=== PATIENT | female | born 1965 | race Caucasian/White ===

== ENCOUNTER 2016-07-24 13:52 | Emergency (ER) | payer MEDICAID ==
[~2016-07-24] VITALS: Ht 152.4 cm; Wt 116.0 kg
[~2016-07-24 13:52] MED LIST: ACET-3161; ARIP20TA7; ASPI-229; ATOR20TA; BENA10TA; CELE200C; CITA20TA19; DICL75TA5; ENAL10TA71; GABA-533; HYDR-1348; IBUP-779; INSU1INS; LEVO25TA7; OMEP20CA4; PIOG1TAB7; PREG75CA; RANI150T7; SIMV40TA2; [UNRECOGNIZED DRUG - CODE]
[2016-07-24] MEDS ORDERED: MORPHINE SULFATE 10 MG/ML CPJ IM ONE ×2 (15:00→19:30)
[2016-07-24] MEDS ORDERED: ONDANSETRON 4MG ODT PO ONE (15:00)
[2016-07-24 15:56] LABS: BASOPHILS % 0.8 % (0.0-2.0); EOSINOPHILS % 1.3 % (0.0-5.0); HEMATOCRIT. 37.9 % (36.0-48.0); HEMOGLOBIN. 12.4 g/dL (12.0-16.0); MEAN CORPUSCULAR HEMOGLOBIN 27.7 pg (28.0-32.0); MEAN CORPUSCULAR HGB CONC 32.8 g/dL (31.0-37.0); MEAN CORPUSCULAR VOLUME 84.5 fL (81.0-99.0); MEAN PLATELET VOLUME 7.6 fl (7.4-10.4); MONOCYTES % 8.7 % (2.0-8.0); NEUTROPHILS % 67.2 % (40.0-76.0); PLATELET 398 x1000/uL (130-400); RED BLOOD CELL COUNT 4.48 mill/uL (4.2-5.4)
[2016-07-24 15:59] LABS: CHLORIDE 104 mEq/L (98-107); INDEX HEMOLYSI 1 (1-3); INDEX ICTERIC 1 (1-4); INDEX LIPEMIC 1 (1-3)
[2016-07-24 16:07] LABS: ACETAMINOPHEN < 2 ug/mL (10-30); ALANINE AMINOTRANSFERASE 26 IU/L (13-61); ALBUMIN 3.6 g/dL (3.4-5.0); ANION GAP 12; CALCIUM 8.7 mg/dL (8.5-10.1); CARBON DIOXIDE 28 mEq/L (21-32); ETHANOL BLOOD < 10 mg/dL; UREA NITROGEN BLOOD 13 mg/dL (7-21); eGFR > 60 mL/min (>60)
[2016-07-24 16:10] LABS: HCG SCREEN INDETERMINATE
[2016-07-24 16:59] LABS: CLARITY URINE CLEAR (CLEAR); COLOR URINE YELLOW (YELLOW); GLUCOSE URINE NEGATIVE (NEGATIVE); KETONES URINE NEGATIVE (NEGATIVE); LEUKOCYTE ESTERASE URINE NEGATIVE (NEGATIVE); NITRITE URINE NEGATIVE (NEGATIVE); OCCULT BLOOD URINE NEGATIVE (NEGATIVE); PH URINE 7.5 (4.5-8.0); PROTEIN URINE NEGATIVE (NEGATIVE); SPECIFIC GRAVITY URINE 1.014 (1.005-1.030); UROBILINOGEN URINE 0.2 E.U./dL (0.2-1.0)
[2016-07-24 17:20] LABS: *AMPHETAMINES SCREEN URINE NEGATIVE (NEGATIVE); *BARBITURATES SCREEN URINE NEGATIVE (NEGATIVE); *BENZODIAZEPINES SCREEN URINE NEGATIVE (NEGATIVE); *COCAINE SCREEN URINE NEGATIVE (NEGATIVE); CANNABINOID URINE SCREEN NEGATIVE (NEGATIVE); ECSTASY MDMA SCREEN URINE NEGATIVE (NEGATIVE); METHADONE URINE SCREEN NEGATIVE (NEGATIVE); OPIATES URINE SCREEN PRESUMTIVE POSITIVE (NEGATIVE); PHENCYCLIDINE URINE SCREEN NEGATIVE (NEGATIVE)
[2016-07-24] MEDS ORDERED: LORAZEPAM 1MG TABLET PO ONE (23:00)
[2016-07-24 23:56] VITALS: BP 128/69
== END 2016-07-25 00:06 ==
LOC: ER 14:18
DX: M79.7 Fibromyalgia (principal); R45.851 Suicidal ideations; R11.2 Nausea with vomiting, unspecified; F11.10 Opioid abuse, uncomplicated; M19.90 Unspecified osteoarthritis, unspecified site; E11.9 Type 2 diabetes mellitus without complications; I10 Essential (primary) hypertension; Z90.49 Acquired absence of other specified parts of digestive tract; Z79.4 Long term (current) use of insulin; Z98.890 Other specified postprocedural states; Z79.82 Long term (current) use of aspirin; Z79.899 Other long term (current) drug therapy; Z88.6 Allergy status to analgesic agent
CPT/HCPCS: 36415; 80053; 80305; 80329; 81003; 82962; 84702; 84703; 85025; 96372; 99285; G0482; J2270; Q0162; 80307

== ENCOUNTER 2016-10-24 10:07 | Inpatient (IN) | payer MEDICAID ==
[~2016-10-24] VITALS: Ht 152.4 cm; Wt 122.5 kg
[~2016-10-24 10:07] MED LIST changes: -ACET-3161; +ACET-3161 PO; +ARIP20TA2 PO; -ARIP20TA7; -ATOR20TA; +ATOR20TA PO; -ENAL10TA71; +ENAL10TA71 PO; -GABA-533; +GABA-533 PO; -LEVO25TA7; +LEVO25TA7 PO; -OMEP20CA4; +OMEP20CA4 PO
[2016-10-24] MEDS ORDERED: IBUPROFEN 600MG TABLET PO STA (11:47)
[2016-10-24] MEDS ORDERED: ACETAMINOPHEN 325MG TABLET PO STA ×2 (11:47)
[2016-10-24] MEDS ORDERED: SODIUM CHLORIDE 0.9% 1,000 ML IV ONE (11:47)
[2016-10-24 12:23] LABS: HEMATOCRIT. 34.7 % (36.0-48.0); HEMOGLOBIN. 11.7 g/dL (12.0-16.0); MEAN CORPUSCULAR HEMOGLOBIN 27.4 pg (28.0-32.0); MEAN CORPUSCULAR VOLUME 81.4 fL (81.0-99.0); MEAN PLATELET VOLUME 7.7 fl (7.4-10.4); PLATELET 358 x1000/uL (130-400); RED BLOOD CELL COUNT 4.26 mill/uL (4.2-5.4)
[2016-10-24 12:27] LABS: PROTHROMBIN TIME 10.8 sec
[2016-10-24 12:36] LABS: CARBON DIOXIDE 27 mEq/L (21-32); CHLORIDE 97 mEq/L (98-107)
[2016-10-24 12:47] LABS: PLATELET ESTIMATE NORMAL
[2016-10-24] MEDS ORDERED: ONDANSETRON HCL 4MG/2ML VIAL IV STA (13:07)
[2016-10-24 13:08] LABS: CLARITY URINE CLEAR (CLEAR); COLOR URINE YELLOW (YELLOW); GLUCOSE URINE TRACE (NEGATIVE); KETONES URINE NEGATIVE (NEGATIVE); LEUKOCYTE ESTERASE URINE TRACE (NEGATIVE); NITRITE URINE NEGATIVE (NEGATIVE); OCCULT BLOOD URINE NEGATIVE (NEGATIVE); PH URINE 5.5 (4.5-8.0); PROTEIN URINE NEGATIVE (NEGATIVE); SPECIFIC GRAVITY URINE 1.011 (1.005-1.030); UROBILINOGEN URINE 0.2 E.U./dL (0.2-1.0)
[2016-10-24] MEDS ORDERED: ONDANSETRON HCL 4MG/2ML VIAL IV PRN (13:15)
[2016-10-24] MEDS ORDERED: DIPHENHYDRAMINE 50MG/ML VIAL IV PRN (13:15)
[2016-10-24] MEDS ORDERED: CLONIDINE 0.1MG TABLET PO PRN (13:15)
[2016-10-24] MEDS ORDERED: IPRATROPIUM/ALBUTEROL 0.5-3(2.5)MG/3ML NEB INH PRN (13:15)
[2016-10-24 13:19] LABS: *AMPHETAMINES SCREEN URINE NEGATIVE (NEGATIVE); *BARBITURATES SCREEN URINE NEGATIVE (NEGATIVE); *BENZODIAZEPINES SCREEN URINE NEGATIVE (NEGATIVE); *COCAINE SCREEN URINE NEGATIVE (NEGATIVE); CANNABINOID URINE SCREEN NEGATIVE (NEGATIVE); METHADONE URINE SCREEN NEGATIVE (NEGATIVE); OPIATES URINE SCREEN NEGATIVE (NEGATIVE); PHENCYCLIDINE URINE SCREEN NEGATIVE (NEGATIVE)
[2016-10-24] MEDS ORDERED: SODIUM CHLORIDE 0.9% 1000ML BAG (SEPSIS BOLUS) IV ONE (13:30)
[2016-10-24] MEDS ORDERED: MORPHINE SULFATE 2 MG/ML CPJ (NOT FOR IM USE) IV STA (13:34)
[2016-10-24] MEDS ORDERED: CEFTRIAXONE 1 G PREMIX 50 ML IV SCH (14:00)
[2016-10-24] MEDS ORDERED: LEVOFLOXACIN 750MG PREMIX 150 ML IV SCH (14:30)
[2016-10-24 21:21] VITALS: BP 148/75
[2016-10-24 22:00] VITALS: BP 148/75
[2016-10-24] MEDS ORDERED: DEXTROSE 50% WATER 50ML SYRINGE IV PRN (22:15)
[2016-10-24] MEDS: MORPHINE SULFATE 2 MG/ML CPJ (NOT FOR IM USE) IV PRN (22:31)
[2016-10-24] MEDS: ACETAMINOPHEN 325MG TABLET PO PRN (22:31)
[2016-10-25] VITALS: BP 125/82
[2016-10-25] MEDS ORDERED: FLUT1DIS IH (01:58)
[2016-10-25] MEDS ORDERED: SERT-112 PO (01:58)
[2016-10-25] MEDS ORDERED: INSHUMSS SUBCUT (01:58)
[2016-10-25] MEDS ORDERED: PRED5TAB48 PO (01:58)
[2016-10-25] MEDS ORDERED: METO-293 PO (01:58)
[2016-10-25] MEDS ORDERED: CANA1TAB2 PO (01:58)
[2016-10-25] MEDS ORDERED: CALC260T6 PO (01:58)
[2016-10-25] MEDS ORDERED: ESCI10TA54 PO (01:58)
[2016-10-25] MEDS ORDERED: LORA1TAB PO (01:58)
[2016-10-25] MEDS ORDERED: ALBU2.5V13 IH (01:58)
[2016-10-25] MEDS ORDERED: ACET80TA20 PO (01:58)
[2016-10-25] MEDS: MORPHINE SULFATE 2 MG/ML CPJ (NOT FOR IM USE) IV PRN ×5 (02:30→21:55)
[2016-10-25 04:00] VITALS: BP_SYST 119; BP_SYST 135; BP_DIAS 39; BP_DIAS 78
[2016-10-25 06:01] LABS: BASOPHILS % 0.6 % (0.0-2.0); EOSINOPHILS % 0.1 % (0.0-5.0); HEMATOCRIT. 34.9 % (36.0-48.0); HEMOGLOBIN. 11.5 g/dL (12.0-16.0); LYMPHOCYTES % 14.1 % (20.0-50.0); MEAN CORPUSCULAR VOLUME 81.8 fL (81.0-99.0); MEAN PLATELET VOLUME 7.7 fl (7.4-10.4); MONOCYTES % 10.8 % (2.0-8.0); NEUTROPHILS % 74.4 % (40.0-76.0); PLATELET 317 x1000/uL (130-400); RED BLOOD CELL COUNT 4.27 mill/uL (4.2-5.4)
[2016-10-25 06:29] LABS: CARBON DIOXIDE 27 mEq/L (21-32); CHLORIDE 102 mEq/L (98-107); HDL CHOLESTEROL 51 mg/dL (40-59); LDL CHOLESTEROL 83 mg/dL (5-100)
[2016-10-25] MEDS: ACETAMINOPHEN 325MG TABLET PO PRN (06:44)
[2016-10-25] MEDS: BLOOD SUGAR DIAGNOSTIC STRIP TEST SCH ×4 (07:40→20:23)
[2016-10-25 08:00] VITALS: BP 122/58
[2016-10-25] MEDS: HYDROCODONE/ACETAMINOPHEN 5/325MG TABLET PO PRN ×2 (09:41→17:59)
[2016-10-25] MEDS: INSULIN LISPRO 100 UNITS/ML SUBCUT SCH ×4 (09:44→21:50)
[2016-10-25 12:06] VITALS: BP 104/58
[2016-10-25 16:21] VITALS: BP 135/79
[2016-10-25] MEDS: CEFTRIAXONE 1 G PREMIX 50 ML IV SCH ×2 (17:22→17:57)
[2016-10-25] MEDS: DOCUSATE SODIUM 250MG CAPSULE PO PRN (21:50)
[2016-10-25 22:00] VITALS: BP 113/67
[2016-10-26] VITALS: BP 122/61
[2016-10-26] MEDS: MORPHINE SULFATE 2 MG/ML CPJ (NOT FOR IM USE) IV PRN ×5 (01:50→22:07)
[2016-10-26 04:00] VITALS: BP 114/69
[2016-10-26] MEDS: BLOOD SUGAR DIAGNOSTIC STRIP TEST SCH ×4 (06:02→20:38)
[2016-10-26 08:00] VITALS: BP 107/63
[2016-10-26] MEDS: HYDROCODONE/ACETAMINOPHEN 5/325MG TABLET PO PRN ×3 (09:08→20:35)
[2016-10-26] MEDS: DOCUSATE SODIUM 250MG CAPSULE PO PRN ×2 (09:10→21:56)
[2016-10-26] MEDS: INSULIN LISPRO 100 UNITS/ML SUBCUT SCH ×4 (09:13→21:51)
[2016-10-26 12:00] VITALS: BP 105/68
[2016-10-26] MEDS ORDERED: HEPARIN SODIUM 1,000 UNIT/1ML VIAL IV ONE (13:53)
[2016-10-26 16:00] VITALS: BP 109/62
[2016-10-26] MEDS: CEFTRIAXONE 1 G PREMIX 50 ML IV SCH (17:00)
[2016-10-26 20:00] VITALS: BP 116/63
[2016-10-26] MEDS: INSULIN DETEMIR UD 100 UNITS/ML SYR SUBCUT SCH (21:51)
[2016-10-27] VITALS: BP 106/63
[2016-10-27 07:10] LABS: HEMOGLOBIN. 11.4 g/dL (12.0-16.0); MEAN CORPUSCULAR HEMOGLOBIN 27.3 pg (28.0-32.0); MEAN CORPUSCULAR VOLUME 81.7 fL (81.0-99.0); MEAN PLATELET VOLUME 8.1 fl (7.4-10.4); PLATELET 303 x1000/uL (130-400); RED BLOOD CELL COUNT 4.17 mill/uL (4.2-5.4); RED CELL DISTRIBUTION WIDTH 15.1 % (11.6-14.6)
[2016-10-27] MEDS: BLOOD SUGAR DIAGNOSTIC STRIP TEST SCH ×4 (07:14→20:46)
[2016-10-27 07:16] LABS: CARBON DIOXIDE 27 mEq/L (21-32); CHLORIDE 101 mEq/L (98-107)
[2016-10-27 08:00] VITALS: BP 108/68
[2016-10-27] MEDS: INSULIN DETEMIR UD 100 UNITS/ML SYR SUBCUT SCH ×2 (09:04→21:45)
[2016-10-27] MEDS: INSULIN LISPRO 100 UNITS/ML SUBCUT SCH ×4 (09:05→20:54)
[2016-10-27] MEDS: DOCUSATE SODIUM 250MG CAPSULE PO PRN ×2 (10:12→21:29)
[2016-10-27] MEDS: MORPHINE SULFATE 2 MG/ML CPJ (NOT FOR IM USE) IV PRN ×2 (10:12→21:17)
[2016-10-27 12:00] VITALS: BP 85/45
[2016-10-27] MEDS ORDERED: FLUCONAZOLE 200MG TABLET PO NR (12:00)
[2016-10-27 16:01] LABS: PLATELET ESTIMATE NORMAL
[2016-10-27] MEDS: CEFTRIAXONE 1 G PREMIX 50 ML IV SCH (17:49)
[2016-10-27] MEDS: LACTOBACILLUS GG CAPSULE PO SCH (17:49)
[2016-10-27 20:00] VITALS: BP 117/65
[2016-10-28] VITALS: BP 95/59
[2016-10-28 04:00] VITALS: BP 99/56
[2016-10-28] MEDS: BLOOD SUGAR DIAGNOSTIC STRIP TEST SCH ×4 (06:01→20:59)
[2016-10-28 06:16] LABS: CHLORIDE 99 mEq/L (98-107)
[2016-10-28 06:45] LABS: CARBON DIOXIDE 28 mEq/L (21-32)
[2016-10-28 07:28] LABS: HEMATOCRIT. 32.9 % (36.0-48.0); HEMOGLOBIN. 10.9 g/dL (12.0-16.0); MEAN CORPUSCULAR HEMOGLOBIN 26.9 pg (28.0-32.0); MEAN CORPUSCULAR VOLUME 81.3 fL (81.0-99.0); PLATELET 329 x1000/uL (130-400); RED BLOOD CELL COUNT 4.05 mill/uL (4.2-5.4)
[2016-10-28 08:00] VITALS: BP 91/49
[2016-10-28] MEDS: LACTOBACILLUS GG CAPSULE PO SCH (08:29)
[2016-10-28] MEDS: INSULIN LISPRO 100 UNITS/ML SUBCUT SCH ×4 (08:30→21:14)
[2016-10-28] MEDS: INSULIN DETEMIR UD 100 UNITS/ML SYR SUBCUT SCH ×2 (10:11→21:15)
[2016-10-28] MEDS ORDERED: SODIUM CHLORIDE 0.9% 250 ML IV ONE (10:45)
[2016-10-28 11:06] LABS: PLATELET ESTIMATE NORMAL
[2016-10-28] MEDS: OMEPRAZOLE 20MG CAPSULE EXTENDED RELEASE PO SCH (11:13)
[2016-10-28] MEDS: MORPHINE SULFATE 2 MG/ML CPJ (NOT FOR IM USE) IV PRN ×2 (11:50→21:09)
[2016-10-28 12:04] VITALS: BP 149/75
[2016-10-28] MEDS: DOCUSATE SODIUM 250MG CAPSULE PO PRN ×2 (12:58→21:29)
[2016-10-28] MEDS: LIDOCAINE 5% PATCH TOP SCH (13:02)
[2016-10-28 16:00] VITALS: BP 114/79
[2016-10-28] MEDS: CEFTRIAXONE 1 G PREMIX 50 ML IV SCH (16:40)
[2016-10-28] MEDS: HYDROCODONE/ACETAMINOPHEN 5/325MG TABLET PO PRN (19:51)
[2016-10-28 20:00] VITALS: BP 107/63
[2016-10-28] MEDS ORDERED: MICONAZOLE NITRATE 100MG VAG SUPP VG SCH (21:00)
[2016-10-29] VITALS: BP 111/65
[2016-10-29 04:00] VITALS: BP 111/65
[2016-10-29] MEDS: MORPHINE SULFATE 2 MG/ML CPJ (NOT FOR IM USE) IV PRN (05:42)
[2016-10-29] MEDS: BLOOD SUGAR DIAGNOSTIC STRIP TEST SCH ×2 (05:46→12:44)
[2016-10-29 05:55] LABS: BASOPHILS % 1.1 % (0.0-2.0); EOSINOPHILS % 3.9 % (0.0-5.0); HEMATOCRIT. 33.6 % (36.0-48.0); HEMOGLOBIN. 11.5 g/dL (12.0-16.0); LYMPHOCYTES % 31.3 % (20.0-50.0); MEAN CORPUSCULAR HEMOGLOBIN 27.8 pg (28.0-32.0); MEAN PLATELET VOLUME 7.8 fl (7.4-10.4); MONOCYTES % 13.1 % (2.0-8.0); NEUTROPHILS % 50.6 % (40.0-76.0); PLATELET 355 x1000/uL (130-400); RED BLOOD CELL COUNT 4.15 mill/uL (4.2-5.4); RED CELL DISTRIBUTION WIDTH 14.9 % (11.6-14.6)
[2016-10-29 06:30] LABS: CARBON DIOXIDE 26 mEq/L (21-32); CHLORIDE 101 mEq/L (98-107)
[2016-10-29 08:00] VITALS: BP 116/66
[2016-10-29] MEDS: LACTOBACILLUS GG CAPSULE PO SCH (08:39)
[2016-10-29] MEDS: OMEPRAZOLE 20MG CAPSULE EXTENDED RELEASE PO SCH (08:39)
[2016-10-29] MEDS: ACETAMINOPHEN 325MG TABLET PO PRN (08:40)
[2016-10-29] MEDS: LIDOCAINE 5% PATCH TOP SCH (08:40)
[2016-10-29] MEDS: INSULIN LISPRO 100 UNITS/ML SUBCUT SCH ×2 (08:43→13:31)
[2016-10-29] MEDS: DOCUSATE SODIUM 250MG CAPSULE PO PRN (09:00)
[2016-10-29] MEDS: INSULIN DETEMIR UD 100 UNITS/ML SYR SUBCUT SCH (10:46)
[2016-10-29 12:00] VITALS: BP 123/71
[2016-10-29 13:43] VITALS: BP 123/71
[2016-10-30] MEDS ORDERED: FAMOTIDINE 20MG TABLET PO SCH (09:00)
== END 2016-10-29 14:45 | disposition home health service (06) | DRG 720 ==
LOC: ER 11:40 → 7WST 13:09 → EDBEDREQ 13:15 → EDBEDREQSVC 13:15 → ENRESERV 19:22
PROVIDERS: ADMIT Internal Medicine; ATTEND Internal Medicine
PROC: 02HV33Z Insertion of Infusion Device into Superior Vena Cava, Percutaneous Approach (ICD-10-PCS; principal; 2016-10-29)
PROC: B5181ZA Fluoroscopy of Superior Vena Cava using Low Osmolar Contrast, Guidance (ICD-10-PCS; 2016-10-29)
PROC: B548ZZA Ultrasonography of Superior Vena Cava, Guidance (ICD-10-PCS; 2016-10-29)
DX: A41.9 Sepsis, unspecified organism (principal); G93.40 Encephalopathy, unspecified; N17.9 Acute kidney failure, unspecified; K85.90 Acute pancreatitis without necrosis or infection, unspecified; N12 Tubulo-interstitial nephritis, not specified as acute or chronic; I10 Essential (primary) hypertension; E11.9 Type 2 diabetes mellitus without complications; B96.20 Unspecified Escherichia coli [E. coli] as the cause of diseases classified elsewhere; F11.20 Opioid dependence, uncomplicated; E03.9 Hypothyroidism, unspecified; M19.90 Unspecified osteoarthritis, unspecified site; E78.5 Hyperlipidemia, unspecified; F41.9 Anxiety disorder, unspecified; M79.7 Fibromyalgia; B96.89 Other specified bacterial agents as the cause of diseases classified elsewhere; E78.00 Pure hypercholesterolemia, unspecified; G89.4 Chronic pain syndrome; K21.9 Gastro-esophageal reflux disease without esophagitis; M81.0 Age-related osteoporosis without current pathological fracture; B37.9 Candidiasis, unspecified; E66.01 Morbid (severe) obesity due to excess calories; N76.0 Acute vaginitis; Z90.49 Acquired absence of other specified parts of digestive tract; Z68.43 Body mass index [BMI] 50.0-59.9, adult; Z88.8 Allergy status to other drugs, medicaments and biological substances; Z88.1 Allergy status to other antibiotic agents
CPT/HCPCS: 36415; 36569; 71010; 76770; 76937; 77001; 80048; 80053; 80061; 80305; 81001; 82962; 83605; 84484; 85025; 85610; 87040; 87077; 87086; 87186; 93005; 96361; 96365; 96366; 96367; 96375; 99285; C1725; J0696; J1200; J1644; J1815; J1956; J2270; J2405; J7030; J7040; J7050

== ENCOUNTER 2016-12-11 16:36 | Emergency (ER) | payer MEDICAID ==
[~2016-12-11] VITALS: Ht 152.4 cm; Wt 118.0 kg
[~2016-12-11 16:36] MED LIST changes: +ACET80TA20 PO; +ALBU2.5V13 IH; +CALC260T6 PO; +CANA1TAB2 PO; +ESCI10TA54 PO; +FLUT1DIS IH; +INSHUMSS SUBCUT; +LORA1TAB PO; +METO-293 PO; +PRED5TAB48 PO; +SERT-112 PO
[2016-12-11] MEDS ORDERED: DIPHENHYDRAMINE 25MG CAPSULE PO ONE ×2 (21:15→22:30)
[2016-12-11] MEDS ORDERED: ACETAMINOPHEN 500MG TABLET PO ONE (21:15)
[2016-12-11] MEDS ORDERED: MORPHINE SULFATE 10 MG/ML CPJ IM ONE (22:30)
[2016-12-11 22:40] VITALS: BP 123/72
== END 2016-12-12 00:35 | disposition home or self-care (01) ==
LOC: ER 20:21
DX: J30.2 Other seasonal allergic rhinitis (principal); M79.7 Fibromyalgia; E11.9 Type 2 diabetes mellitus without complications; M19.90 Unspecified osteoarthritis, unspecified site; I10 Essential (primary) hypertension; E78.00 Pure hypercholesterolemia, unspecified; Z88.6 Allergy status to analgesic agent; Z79.82 Long term (current) use of aspirin; Z79.4 Long term (current) use of insulin; Z90.49 Acquired absence of other specified parts of digestive tract
CPT/HCPCS: 96372; 99284; J2270; Z7610; Q0163

== ENCOUNTER 2017-10-10 06:59 | Emergency (ER) | payer MEDICAID ==
[~2017-10-10] VITALS: Ht 152.4 cm; Wt 116.0 kg
[~2017-10-10 06:59] MED LIST changes: -ASPI-229; +ASPI81TA35
[2017-10-10] MEDS ORDERED: MORPHINE SULFATE 10 MG/ML CPJ IV ONE (08:00)
[2017-10-10] MEDS ORDERED: ONDANSETRON 4MG ODT PO ONE (08:00)
[2017-10-10 09:43] VITALS: BP 138/76
== END 2017-10-10 09:43 | disposition home or self-care (01) ==
LOC: ER 07:36
DX: M54.5 Low back pain (principal); G89.29 Other chronic pain; M19.90 Unspecified osteoarthritis, unspecified site; E78.00 Pure hypercholesterolemia, unspecified; I10 Essential (primary) hypertension; J45.909 Unspecified asthma, uncomplicated; E11.9 Type 2 diabetes mellitus without complications; Z79.4 Long term (current) use of insulin; Z79.82 Long term (current) use of aspirin; Z98.890 Other specified postprocedural states
CPT/HCPCS: 81025; 96374; 99284; J2270; Q0162; Z7610

== ENCOUNTER 2018-01-25 13:27 | Emergency (ER) | payer MEDICAID ==
[~2018-01-25] VITALS: Ht 160 cm; Wt 110.0 kg
[~2018-01-25 13:27] MED LIST changes: -ASPI81TA35; +ASPI81TA47
[2018-01-25 14:22] LABS: BASOPHILS % 0.4 % (0.0-2.0); EOSINOPHILS % 1.9 % (0.0-5.0); HEMATOCRIT. 39.4 % (36.0-48.0); HEMOGLOBIN. 13.3 g/dL (12.0-16.0); LYMPHOCYTES % 11.6 % (20.0-50.0); MEAN CORPUSCULAR VOLUME 85.7 fL (81.0-99.0); MEAN PLATELET VOLUME 7.8 fl (7.4-10.4); MONOCYTES % 7.1 % (2.0-8.0); PLATELET 391 x1000/uL (130-400); RED CELL DISTRIBUTION WIDTH 14.1 % (11.6-14.6)
[2018-01-25 14:26] LABS: CHLORIDE 101 mEq/L (98-107)
[2018-01-25 14:28] LABS: PROTHROMBIN TIME 9.9 sec (9.1-11.1)
[2018-01-25] MEDS ORDERED: MORPHINE SULFATE 4 MG/ML CPJ (NOT FOR IM USE) IV ONE (16:30)
[2018-01-25 17:43] LABS: CLARITY URINE CLEAR (CLEAR); COLOR URINE YELLOW (YELLOW); KETONES URINE NEGATIVE (NEGATIVE); LEUKOCYTE ESTERASE URINE NEGATIVE (NEGATIVE); NITRITE URINE NEGATIVE (NEGATIVE); OCCULT BLOOD URINE NEGATIVE (NEGATIVE); PROTEIN URINE NEGATIVE (NEGATIVE); SPECIFIC GRAVITY URINE 1.006 (1.005-1.030); UROBILINOGEN URINE 0.2 E.U./dL (0.2-1.0)
[2018-01-25 18:00] VITALS: BP 160/98
== END 2018-01-25 19:25 | disposition home or self-care (01) ==
LOC: ER 14:04
DX: R10.9 Unspecified abdominal pain (principal); R19.7 Diarrhea, unspecified; R11.10 Vomiting, unspecified; J45.909 Unspecified asthma, uncomplicated; I10 Essential (primary) hypertension; E11.9 Type 2 diabetes mellitus without complications; E78.00 Pure hypercholesterolemia, unspecified; Z88.6 Allergy status to analgesic agent; Z88.8 Allergy status to other drugs, medicaments and biological substances; Z79.899 Other long term (current) drug therapy
CPT/HCPCS: 36415; 74176; 80053; 81003; 81025; 83690; 85025; 85610; 96374; 99285; J2270; Z7610

== ENCOUNTER 2018-03-22 11:16 | Emergency (ER) | payer MEDICAID ==
[~2018-03-22] VITALS: Ht 152.4 cm; Wt 112.0 kg
[2018-03-22] MEDS ORDERED: MORPHINE SULFATE 4 MG/ML CPJ (NOT FOR IM USE) IV STA (12:16)
[2018-03-22] MEDS ORDERED: SODIUM CHLORIDE 0.9% 1,000 ML IV ONE (12:16)
[2018-03-22] MEDS ORDERED: METOCLOPRAMIDE HCL 10MG/2ML VIAL IV ONE (12:30)
[2018-03-22] MEDS ORDERED: DIPHENHYDRAMINE 25MG CAPSULE PO ONE (12:30)
[2018-03-22 12:52] LABS: BASOPHILS % 0.8 % (0.0-2.0); EOSINOPHILS % 3.2 % (0.0-5.0); HEMOGLOBIN. 13.5 g/dL (12.0-16.0); LYMPHOCYTES % 22.5 % (20.0-50.0); MEAN CORPUSCULAR HEMOGLOBIN 29.5 pg (28.0-32.0); MEAN CORPUSCULAR VOLUME 85.7 fL (81.0-99.0); MEAN PLATELET VOLUME 7.9 fl (7.4-10.4); MONOCYTES % 11.8 % (2.0-8.0); NEUTROPHILS % 61.7 % (40.0-76.0); PLATELET 329 x1000/uL (130-400); RED BLOOD CELL COUNT 4.55 mill/uL (4.2-5.4); RED CELL DISTRIBUTION WIDTH 14.7 % (11.6-14.6)
[2018-03-22 13:05] LABS: CHLORIDE 104 mEq/L (98-107)
[2018-03-22 13:15] LABS: PROTHROMBIN TIME 10.1 sec (9.1-11.1)
[2018-03-22 13:52] LABS: CLARITY URINE CLEAR (CLEAR); COLOR URINE YELLOW (YELLOW); KETONES URINE NEGATIVE (NEGATIVE); LEUKOCYTE ESTERASE URINE NEGATIVE (NEGATIVE); NITRITE URINE NEGATIVE (NEGATIVE); OCCULT BLOOD URINE NEGATIVE (NEGATIVE); PROTEIN URINE NEGATIVE (NEGATIVE); SPECIFIC GRAVITY URINE 1.013 (1.005-1.030); UROBILINOGEN URINE 0.2 E.U./dL (0.2-1.0)
[2018-03-22 15:15] VITALS: BP 142/69
== END 2018-03-22 15:30 | disposition home or self-care (01) ==
LOC: ER 13:50
DX: J32.9 Chronic sinusitis, unspecified (principal); B02.9 Zoster without complications; E11.9 Type 2 diabetes mellitus without complications; E78.00 Pure hypercholesterolemia, unspecified; I10 Essential (primary) hypertension; M79.7 Fibromyalgia; G62.9 Polyneuropathy, unspecified; Z79.4 Long term (current) use of insulin; Z88.6 Allergy status to analgesic agent; Z88.8 Allergy status to other drugs, medicaments and biological substances; Z79.82 Long term (current) use of aspirin
CPT/HCPCS: 36415; 70450; 80053; 81003; 85025; 85610; 96374; 96375; 99285; J2270; J2765; J7030; Q0163

== ENCOUNTER 2018-03-24 10:10 | Emergency (ER) | payer MEDICAID ==
[~2018-03-24] VITALS: Ht 167.6 cm; Wt 112.0 kg
[2018-03-24] MEDS ORDERED: HYDROCODONE/ACETAMINOPHEN 5/325MG TABLET PO STA (13:29)
[2018-03-24 14:44] LABS: EOSINOPHILS % 4.2 % (0.0-5.0); HEMATOCRIT. 39.9 % (36.0-48.0); HEMOGLOBIN. 13.6 g/dL (12.0-16.0); LYMPHOCYTES % 27.9 % (20.0-50.0); MEAN CORPUSCULAR HEMOGLOBIN 29.4 pg (28.0-32.0); MEAN CORPUSCULAR VOLUME 86.2 fL (81.0-99.0); MEAN PLATELET VOLUME 7.8 fl (7.4-10.4); MONOCYTES % 10.1 % (2.0-8.0); NEUTROPHILS % 56.8 % (40.0-76.0); PLATELET 366 x1000/uL (130-400); RED BLOOD CELL COUNT 4.63 mill/uL (4.2-5.4); RED CELL DISTRIBUTION WIDTH 14.5 % (11.6-14.6)
[2018-03-24 14:46] LABS: CLARITY URINE CLEAR (CLEAR); COLOR URINE YELLOW (YELLOW); KETONES URINE NEGATIVE (NEGATIVE); LEUKOCYTE ESTERASE URINE NEGATIVE (NEGATIVE); NITRITE URINE NEGATIVE (NEGATIVE); OCCULT BLOOD URINE NEGATIVE (NEGATIVE); PROTEIN URINE NEGATIVE (NEGATIVE); SPECIFIC GRAVITY URINE 1.009 (1.005-1.030); UROBILINOGEN URINE 0.2 E.U./dL (0.2-1.0)
[2018-03-24 14:51] LABS: PARTIAL THROMBOPLASTIN TIME 27.2 sec (23.4-31.0)
[2018-03-24 14:53] LABS: CHLORIDE 101 mEq/L (98-107)
[2018-03-24] MEDS ORDERED: MORPHINE SULFATE 4 MG/ML CPJ (NOT FOR IM USE) IV ONE (15:45)
[2018-03-24 16:45] VITALS: BP 106/39
== END 2018-03-24 17:50 | disposition home or self-care (01) ==
LOC: ER 10:10
DX: J06.9 Acute upper respiratory infection, unspecified (principal); M79.7 Fibromyalgia; R07.89 Other chest pain; R06.02 Shortness of breath; E11.9 Type 2 diabetes mellitus without complications; E78.00 Pure hypercholesterolemia, unspecified; I10 Essential (primary) hypertension; Z98.890 Other specified postprocedural states; Z79.82 Long term (current) use of aspirin; Z79.4 Long term (current) use of insulin; Z79.899 Other long term (current) drug therapy; Z88.6 Allergy status to analgesic agent; Z88.8 Allergy status to other drugs, medicaments and biological substances
CPT/HCPCS: 36415; 71045; 80053; 81003; 84484; 85025; 85610; 85730; 87804; 93005; 96374; 99285; J2270